=== PATIENT | male | born 1940 | race Caucasian/White ===

== ENCOUNTER 2017-04-20 09:44 | Emergency (ER) | payer MEDICARE ==
[~2017-04-20] VITALS: Ht 182.9 cm; Wt 106.1 kg
[2017-04-20] MEDS ORDERED: TAMS0.4C2 PO (10:18)
[2017-04-20] MEDS ORDERED: FISH400C3 PO (10:18)
[2017-04-20] MEDS ORDERED: CALC625T47 PO (10:18)
[2017-04-20] MEDS ORDERED: MULT-717 PO (10:18)
[2017-04-20] MEDS ORDERED: ASPI-496 PO (10:18)
[2017-04-20] MEDS ORDERED: CART1TAB4 PO (10:18)
[2017-04-20] MEDS ORDERED: SERT100T5 PO (10:18)
[2017-04-20 11:04] LABS: BASOPHILS # (AUTO) 0.05 x10^3/uL (0-0.1); BASOPHILS % (AUTO) 1 % (0-1); EOSINOPHILS # (AUTO) 0.87 x10^3/uL (0-0.4); EOSINOPHILS % (AUTO) 12 % (1-7); LYMPHOCYTES # (AUTO) 1.74 x10^3/uL (1-3.4); LYMPHOCYTES % (AUTO) 23 % (22-44); MD NO; MEAN CORPUSCULAR HEMOGLOBIN 29.6 pg (27.5-34.5); MEAN CORPUSCULAR HGB CONC 33.6 g/dL (33.2-36.2); MEAN CORPUSCULAR VOLUME 88.3 fL (81-97); MEAN PLATELET VOLUME 7.3 fL (7.4-10.4); MONOCYTES # (AUTO) 0.56 x10^3/uL (0.2-0.8); MONOCYTES % (AUTO) 8 % (2-9); NEUTROPHILS # (AUTO) 4.28 x10^3/uL (1.8-6.8); NEUTROPHILS % (AUTO) 57 % (42-75); PLATELET COUNT 346 x10^3/uL (130-400); RED CELL DISTRIBUTION WIDTH 12.9 % (9.4-14.8)
[2017-04-20 11:16] LABS: ALBUMIN 3.8 g/dL (3.4-5.0); ANION GAP 5 mmol/L (5-15); CALCIUM 8.6 mg/dL (8.5-10.1); CHLORIDE 106 mmol/L (98-107); CREATININE 0.97 mg/dL (0.7-1.3)
[2017-04-20 11:20] LABS: TROPONIN I 0.044 ng/mL (0.000-0.045)
[2017-04-20 11:30] VITALS: BP 121/66
[2017-04-24] MEDS ORDERED: CEFD300C37 PO (09:49)
== END 2017-04-20 11:56 | disposition home or self-care (01) ==
LOC: ED 10:55
DX: B96.89 Other specified bacterial agents as the cause of diseases classified elsewhere (principal); J20.8 Acute bronchitis due to other specified organisms; Z79.82 Long term (current) use of aspirin
CPT/HCPCS: 36415; 80048; 82040; 83880; 84484; 85025; 93005; 99285

== ENCOUNTER → 2019-11-22 | Outpatient (CLI) | payer MEDICARE ==
[~2019-11-22] MED LIST: ALBU90AE INH; ASPI-496 PO; CALC625T47 PO; CART1TAB4 PO; CEFD300C37 PO; FISH400C3 PO; IPRA3AMP30 NPPB; MULT-717 PO; PRED5TAB PO; SERT100T32 PO; SULF1TAB24 PO; TAMS0.4C2 PO
== END | disposition home or self-care (01) ==
LOC: CFH 08:52
PROVIDERS: ATTEND Nurse Practitioner
DX: M19.072 Primary osteoarthritis, left ankle and foot (principal); M25.775 Osteophyte, left foot; M25.872 Other specified joint disorders, left ankle and foot